=== PATIENT | female | born 1955 | race Asian ===

== ENCOUNTER 2017-02-17 08:13 | Outpatient (CLI) | payer BC, OTHER ==
[~2017-02-17 08:13] MED LIST: ASCO10007 PO; LEVOTHYROXINE
== END 2017-02-17 23:59 | disposition home or self-care (01) ==
LOC: XRAY 08:13
PROVIDERS: ATTEND Internal Medicine
DX: M79.661 Pain in right lower leg (principal); R22.41 Localized swelling, mass and lump, right lower limb
CPT/HCPCS: 73590; 76881

== ENCOUNTER 2017-03-29 07:45 | Emergency (ER) | payer BC, OTHER ==
[~2017-03-29] VITALS: Ht 165.1 cm; Wt 66.2 kg
--- NOTE | 2017-03-29 07:57 | NUR ---
DR RICHARDSON AT BEDSIDE FOR EVALUATION.
--- NOTE | 2017-03-29 08:00 | NUR ---
mse completed, pt d/c'd home, aci/rx x1 given. pt ambulated w/o diff took all belongings.
[2017-03-29 08:01] VITALS: BP 122/71
== END 2017-03-29 08:02 | disposition home or self-care (01) ==
LOC: ER 07:45
DX: J06.9 Acute upper respiratory infection, unspecified (principal)
CPT/HCPCS: 99283; A4663

== ENCOUNTER 2017-05-05 07:30 | Outpatient (CLI) | payer BC, OTHER | END 2017-05-05 23:59 | disposition home or self-care (01) | LOC: LAB 07:30 | PROVIDERS: ATTEND Internal Medicine | DX: E03.9 Hypothyroidism, unspecified (principal) | CPT/HCPCS: 36415; 84443 ==

== ENCOUNTER 2017-08-03 07:37 | Outpatient (CLI) | payer BC, OTHER | END 2017-08-03 23:59 | disposition home or self-care (01) | LOC: LAB 07:37 | PROVIDERS: ATTEND Internal Medicine | DX: E03.9 Hypothyroidism, unspecified (principal) | CPT/HCPCS: 36415; 84443 ==

== ENCOUNTER 2017-10-13 08:16 | Emergency (ER) | payer BC, OTHER ==
[~2017-10-13] VITALS: Ht 165.1 cm; Wt 65.8 kg
[2017-10-13] MEDS ORDERED: KETOROLAC TROMETHAMINE 60 MG INJ IM ONE ×2 (09:00→09:12)
--- NOTE | 2017-10-13 09:11 | NUR ---
Patient discharged to home in stable conditon. Written and verbal after care instructions given. Patient verbalizes understanding of instructions.
== END 2017-10-13 09:13 | disposition home or self-care (01) ==
LOC: ER 08:16
DX: M75.52 Bursitis of left shoulder (principal); M19.012 Primary osteoarthritis, left shoulder; E03.9 Hypothyroidism, unspecified
CPT/HCPCS: 73030; A4663; J1885

== ENCOUNTER 2017-11-03 14:58 | Outpatient (CLI) | payer BC, OTHER | END 2017-11-03 23:59 | disposition home or self-care (01) | LOC: LAB 14:58 | PROVIDERS: ATTEND Psychiatry & Neurology Psychiatry | DX: E03.9 Hypothyroidism, unspecified (principal) | CPT/HCPCS: 36415; 84443 ==

== ENCOUNTER 2018-02-16 07:36 | Emergency (ER) | payer BC, OTHER ==
[~2018-02-16] VITALS: Ht 165.1 cm; Wt 63.5 kg
--- NOTE | 2018-02-16 08:34 | NUR ---
Patient discharged to home in stable conditon. Written and verbal after care instructions given. Patient verbalizes understanding of instructions.pt walks in steady gait.
[2018-05-04] MEDS ORDERED: TRAMADOL (07:50)
== END 2018-02-16 08:05 | disposition home or self-care (01) ==
LOC: ER 07:36
DX: M25.461 Effusion, right knee (principal); E03.9 Hypothyroidism, unspecified; Z79.899 Other long term (current) drug therapy
CPT/HCPCS: A4663

== ENCOUNTER 2018-02-20 11:10 | Outpatient (CLI) | payer BC, OTHER ==
[2018-02-20 11:45] LABS: *BILIRUBIN,URIN NEGATIVE (NEGATIVE); *BLOOD, URINE NEGATIVE (NEGATIVE); *CLARITY,URINE CLEAR (CLEAR); *COLOR,URINE YELLOW (YELLOW); *KETONES,URINE NEGATIVE (NEGATIVE); *PROTEIN,URINE NEGATIVE (NEGATIVE); *UROBILINOGEN,URINE 0.2 E.U./dl (NORMAL); BASOPHILS # (AUTO) 0.1 K/uL (0.0-8.0); BASOPHILS % (AUTO) 0.8 % (0.0-2.0); EOSINOPHILS # (AUTO) 0.4 K/uL (0.0-0.7); EOSINOPHILS % (AUTO) 5.1 % (0.0-7.0); HEMATOCRIT 42.3 % (31.2-41.9); HEMOGLOBIN 14.3 g/dL (10.9-14.3); LEUKOCYTE ESTERASE ,URINE NEGATIVE (NEGATIVE); LYMPHOCYTES # (AUTO) 2.4 K/uL (20.0-40.0); LYMPHOCYTES % (AUTO) 30.7 % (20.5-51.5); MEAN CORPUSCULAR HEMOGLOBIN 30.8 uug (24.7-32.8); MEAN CORPUSCULAR HGB CONC 34 g/dL (32.3-35.6); MONOCYTES # (AUTO) 0.6 K/uL (2.0-10.0); MONOCYTES % (AUTO) 7.9 % (0.0-11.0); NEUTROPHILS # (AUTO) 4.4 K/uL (1.8-8.9); NEUTROPHILS % (AUTO) 55.5 % (38.5-71.5); NITRITE, URINE NEGATIVE (NEGATIVE); PLATELET COUNT (AUTO) 276 K/uL (179-408); RED BLOOD CELL COUNT(AUTO) 4.65 MIL/uL (3.63-4.92); UGLUCOSE NEGATIVE (NEGATIVE); WHITE BLOOD COUNT (AUTO) 7.8 K/uL (3.8-11.8)
[2018-02-20 11:52] LABS: BACTERIA,URINE FEW /HPF (NONE SEEN); MUCUS,URINE FEW /LPF (0-FEW); RBC,URINE 0-3 /HPF (0-3); SQUAMOUS EPITHELIAL CELL,UR FEW /HPF (NONE SEEN); WBC,URINE 0-3 /HPF (0-3)
[2018-02-20 12:00] LABS: BILIRUBIN,TOTAL 0.4 mg/dL (0.2-1.0); CREATININE 0.7 mg/dL (0.6-1.3); POTASSIUM 4.2 mmol/L (3.5-5.1); TOTAL PROTEIN, SERUM 8.5 g/dL (6.4-8.2)
[2018-02-20 12:08] LABS: THYROID STIMULATING HORMONE 11.77 mIU/mL (0.358-3.740)
[2018-02-20 20:58] LABS: *OCCULT BLOOD STOOL NEGATIVE (NEGATIVE)
[2018-02-21 20:42] LABS: *OCCULT BLOOD STOOL NEGATIVE (NEGATIVE)
[2018-02-22 19:54] LABS: *OCCULT BLOOD STOOL NEGATIVE (NEGATIVE)
[2018-05-04] MEDS ORDERED: TRAMADOL (07:50)
== END 2018-02-20 23:59 | disposition home or self-care (01) ==
LOC: LAB 11:10
PROVIDERS: ATTEND Internal Medicine
DX: Z00.01 Encounter for general adult medical examination with abnormal findings (principal); R79.89 Other specified abnormal findings of blood chemistry
CPT/HCPCS: 36415; 82306; 84443; 85025

== ENCOUNTER 2018-03-03 08:19 | Outpatient (CLI) | payer BC, OTHER ==
[2018-05-04] MEDS ORDERED: TRAMADOL (07:50)
== END 2018-03-03 23:59 | disposition home or self-care (01) ==
LOC: XRAY 08:19
PROVIDERS: ATTEND Internal Medicine
DX: M25.561 Pain in right knee (principal); M20.11 Hallux valgus (acquired), right foot
CPT/HCPCS: 73630

== ENCOUNTER 2018-04-28 07:54 | Outpatient (CLI) | payer BC, OTHER ==
[2018-05-04] MEDS ORDERED: TRAMADOL (07:50)
== END 2018-04-28 23:59 | disposition home or self-care (01) ==
LOC: LAB 07:54
PROVIDERS: ATTEND Internal Medicine
DX: E03.9 Hypothyroidism, unspecified (principal)
CPT/HCPCS: 36415; 84443